=== PATIENT | female | born 2000 | race Caucasian/White ===

== ENCOUNTER 2019-05-06 12:33 | Emergency (ER) | payer BC, MEDICAID, SELFPAY ==
[2019-05-06 12:34] VITALS: BP 110/75; PULSE 88; RESP 15; TEMP 36.7; O2SAT 98; BMI 18.8
--- NOTE | 2019-05-06 13:44 | ED.DCSUM_ITS ---
History of Present Illness Chief Complaint: Back Informant: Patient Onset: Today Narrative: Patient presents to the ED with right-sided thoracic back pain/rib pain that started this morning. She twisted in her bed to reach over to the nightstand when she felt a sharp stabbing pain in this region. She states this was at her boyfriend's house and they did not have any analgesics so she did not take anything. She states it is painful when she takes of breath. She denies any chest pain or difficulty breathing. Pain is worse with movement also. She has never had this before. She is otherwise healthy. Past Medical History - Allergies and Home Meds Allergies/Adverse Reactions: Allergies No Known Allergies Allergy (Verified 05/06/19 12:37) Primary Care Physician: Aleksey Hurley DO [Primary Care Provider] - Surgical History: no surgical history Smoking Status: Never smoker Review of Systems General: Denies: Chills, Fever, Sweats Eyes: Denies: Visual changes - bilaterally, Diplopia ENT: Denies: Rhinorrhea, Sore throat Cardiovascular: Denies: Chest pain, Palpitations Respiratory: Denies: Dyspnea, Cough, Dyspnea on exertion Gastrointestinal: Denies: Abdominal pain, Nausea, Vomiting, Diarrhea, Melena, Hematochezia Genitourinary: Denies: Dysuria, Hematuria, Frequency Musculoskeletal: Reports: Back pain. Denies: Extremity Pain Skin: Denies: Rash, Wounds Neurological: Denies: Headache, Weakness, Numbness Physical Exam Vital Signs/Narrative: Vital Signs Temp Pulse Resp BP Pulse Ox 05/06/19 12:34 98.0 F 88 15 110/75 98 General: Well nourished, Well developed, No Acute Distress Head: Normocephalic, Atraumatic Eyes: Perrl, EOMI ENT: Moist mucous membranes, No rhinorrhea Neck: Supple, Nontender Cardiovascular: Regular rate, Regular rhythm, No murmurs Respiratory: No distress, CTA bilaterally, Chest nontender Abdomen: Soft, Nontender, Nondistended, Normal bowel sounds Back: Normal Inspection, - - Tenderness to palpation over right thoracic p araspinal muscles. There is no midline tenderness. No palpable step-offs. Patient also has some tenderness to palpation over the right posterior intercostal muscles. No skin changes. No rash. No concerning signs/symptoms of epidural abscess or cauda equina. Extremities: Nontender, No edema Skin: Normal color, No rash Neurological: Alert, Oriented x3, Cranial nerves II-XII grossly intact, Normal Strength, Normal Sensation Psychological: Normal affect, Normal Mood Diagnostic/Tx/Re-eval - Medical Decision Making Patient presents to the ED after twisting and injuring her right side of her thoracic region. Following history and physical exam, patient's pain is very reproducible. It is exacerbated with movement. Given the mechanism of her injury, I discussed with the patient and her mother that I feel it is very unlikely that there is any bony injury. This is most likely muscular in nature. Patient was given IM Toradol. She did report mild relief of her symptoms. A Lidoderm patch was placed to the area of pain. At this time, think it is safe for the patient be discharged home. I did provide her with a prescription for Naprosyn. She was educated on signs/symptoms to return to the ED. She is provided discharge instructions. She is agreeable to plan. Disposition: Home stable Impression: Thoracic strain ED Disposition - Plan for ED Patient: Disposition: Home or Assisted Living Diagnosis: Thoracic myofascial strain Instructions: Thoracic Strain Prescriptions: Naproxen [Naprosyn] 500 mg PO BID PRN PRN #30 tab PRN Reason: Pain Prescription Printed Referrals: Aleksey Hurley DO [Primary Care Provider] -
[2019-05-06] MEDS: Ketorolac 15 MG/ML Vial IM (13:47)
[2019-05-06] MEDS: Lidocaine 5% Patch 1 PATCH TOPICAL (14:26)
[2019-05-06 14:59] VITALS: BP 107/76; PULSE 84; RESP 16
== END 2019-05-06 15:01 | disposition home or self-care (01) ==
PROVIDERS: Emergency Provider Physician Assistant; Family Provider Pediatrics; PCP Pediatrics
DX: S29.012A Strain of muscle and tendon of back wall of thorax, initial encounter (principal); X50.1XXA Overexertion from prolonged static or awkward postures, initial encounter; Y93.9 Activity, unspecified; Y92.9 Unspecified place or not applicable
CPT/HCPCS: 96372; 99282

== ENCOUNTER 2019-12-18 17:32 | Emergency (ER) | payer BC, MEDICAID, SELFPAY ==
[2019-12-18 17:34] VITALS: BP 127/81; PULSE 134; RESP 18; TEMP 37.4; O2SAT 98; BMI 20.7
[2019-12-18 17:40] VITALS: PULSE 126; RESP 16; TEMP 37.4; O2SAT 98
--- NOTE | 2019-12-18 18:55 | ED.DCSUM_ITS ---
- ER Visit Summary Date of Service: 12/18/19 Chief Complaint: [Fever, chills, body aches, and sore throat] History of Present Illness: The patient is a 19 F [presents to the emergency department with symptoms that started this morning. Patient states that she had a roommate at school that had a cold recently. Patient also has a sister at home is on the tail end of similar kind of illness. Patient does describe a headache. He has had no significant cough. He denies any urinary symptoms. Patient last took Tylenol about 3 hours ago.] Physical Examination: [HEENT-PERRLA, EOMI. Cranial nerves II through XII grossly intact. TMs clear. Mucous membranes moist. No adenopathy. No nuchal rigidity. Pharynx slightly erythematous. No exudates. Uvula midline without trismus. Cardiovascular-regular rate and rhythm without murmur or ectopy Lungs-clear to auscultation, chest wall stable without crepitus or subcu emphysema Abdomen-normoactive bowel sounds, soft, nontender, no rebound or rigidity, no peritoneal signs. Extremities-intact ?4, normal range of motion, normal pulses, atraumatic] Test Results: [Influenza screen was negative. Strep screen was negative.] Emergency Department Course and Treatment: [Patient received Toradol 60 mg IM. I discussed possibly treating with Tamiflu as I suspect patient may have early onset of influenza however at this point she and her mother agree that they want to hold off on that treatment.] Treatment Plan: [Advised to push fluids and I will write her a prescription for naproxen for the body aches. Patient advised to follow-up with her primary care physician within 3 to 5 days. Advised to return if conditions worsen anyway.] Disposition: [Discharged home in stable condition] Impression: [Viral URI] This note was generated with [employer] dictation software. It may contain incorrect words, spelling, and punctuation that were not noted in review of the chart prior to signing ED Disposition - Plan for ED Patient: Referrals: Aleksey Hurley DO [Primary Care Provider] -
--- NOTE | 2019-12-18 18:57 | ED.DEP ---
ED Disposition - Plan for ED Patient: Instructions: URI, Viral, No Abx (Adult) Prescriptions: Naproxen [Naprosyn] 500 mg PO BID PRN #20 tab Prescription Printed Referrals: Aleksey Hurley DO [Primary Care Provider] - 3-5 Days
[2019-12-18] MEDS: Ketorolac 60 MG/2 ML Vial IM (19:11)
[2019-12-18 19:37] VITALS: BP 122/68; PULSE 99; RESP 17; O2SAT 97
--- NOTE | 2019-12-18 19:37 | ED.RN ---
SHOT TIME OBSERVED FOR GREATER THAN 15 MIN, NO REACTION NOTED BY THIS RN. PT D/C.
--- NOTE | 2019-12-19 13:51 | ED.RN ---
pt advised of pos culture result. pt spoke to dr cervantes and called in PVK 500mg 4 times a day x 7 days
== END 2019-12-18 19:38 | disposition home or self-care (01) ==
LOC: ED 18:05
PROVIDERS: Emergency Provider Emergency Medicine; PCP Pediatrics
DX: J06.9 Acute upper respiratory infection, unspecified (principal)
CPT/HCPCS: 87077; 87804; 87880; 96372; 99282; J7030; A4216

== ENCOUNTER → 2020-11-21 | Outpatient (CLI) | payer BC, MEDICAID, SELFPAY | END | disposition home or self-care (01) | LOC: LABSPEC 13:08 | PROVIDERS: PCP Pediatrics; Referring Provider Dermatology; Visit Provider Dermatology | DX: R50.9 Fever, unspecified (principal); L04.2 Acute lymphadenitis of upper limb; L30.8 Other specified dermatitis; L91.0 Hypertrophic scar | CPT/HCPCS: 87015; 87070; 87075; 87101; 87116; 87176; 87205; 87206 ==

== ENCOUNTER → 2020-12-06 09:45 | Outpatient (CLI) | payer BC, MEDICAID, SELFPAY ==
[2020-12-06 11:13] LABS: SARS-COV-2 TOTAL ABS Reactive (Nonreactive)
== END ==
PROVIDERS: PCP Pediatrics; Visit Provider Internal Medicine Pulmonary Disease
DX: R91.8 Other nonspecific abnormal finding of lung field (principal); J45.909 Unspecified asthma, uncomplicated
CPT/HCPCS: 36415; 86769

== ENCOUNTER → 2020-12-31 11:55 | Outpatient (CLI) | payer BC, MEDICAID, SELFPAY ==
[2020-12-31 15:19] LABS: Absolute Lymphocyte Count 1.73 X10^3/uL (0.83-4.51); Absolute Neutrophil Count 4.1 X10^3/uL (2.0-7.7); Basophil# 0.03 X10^3/uL; Basophil% 0.5 % (0-1); Eosinophil# 0.03 X10^3/uL; Eosinophils% 0.5 % (0-5); Hematocrit 40.5 % (37-47); Hemoglobin 13.4 g/dL (12.0-15.0); Lymphocyte # 1.73 X10^3/ul (4.0); Lymphocyte % 26.6 % (19-41); Mean Corp Hgb Conc 33.1 g/dL (32-36); Mean Corpuscular Hgb 29.3 pg (27.0-32.0); Mean Corpuscular Volume 88.4 fL (81-99); Mean Platelet Vol. 9.9 fl (6.2-12.0); Monocyte# 0.57 X10^3/uL; Monocyte% 8.8 % (0-10); NRBC Flagged by Analyzer 0 % (0-5); Neutrophil # 4.14 X10^3/uL (2.7-7.7); Neutrophil % 63.4 % (47-70); Platelet Count 245 K/mm3 (150-450); RBC Distribution Width CV 11.4 % (11.6-14.6); RBC Distribution Width SD 36.4 fl (35.1-43.9); Red Blood Count 4.58 M/mm3 (4.2-5.4); White Blood Count 6.5 K/mm3 (4.4-11.0)
[2020-12-31 15:38] LABS: ALB/GLOB Ratio 1.2 RATIO (0.9-2.4); AST(SGOT) 20 U/L (15-37); Alanine Aminotransfer ALT/SGPT 22 U/L (13-56); Albumin, Serum 4.2 g/dL (3.2-5.0); Alkaline Phosphatase 76 U/L (45-117); Anion Gap 6 (5-15); BUN 5 mg/dL (7-18); Calcium,Total 9.5 mg/dL (8.5-10.1); Chloride 104 mmol/L (98-107); Creatinine, Serum 0.72 mg/dL (0.55-1.02); EST Glomerular Filtration Rate 108 mL/min (>60); Est Glom Filt Rate - Afr Amer 131 mL/min (>60); Globulin 3.6 g/dL (2.2-4.2); Glucose 84 mg/dL (74-106); Magnesium 1.6 mg/dL (1.6-2.6); Potassium 3.7 mmol/L (3.5-5.1); Protein, Total 7.8 g/dL (6.4-8.2); Sodium Level 139 mmol/L (136-145); T4 Free Direct 1.07 ng/dL (0.76-1.46); Thyroid Stim Hormone (TSH) 0.81 uIU/mL (0.358-3.74)
== END ==
PROVIDERS: PCP Family Medicine; Referring Provider Family Medicine; Visit Provider Family Medicine
DX: R00.0 Tachycardia, unspecified (principal)
CPT/HCPCS: 36415; 80053; 83735; 84439; 84443; 85025

== ENCOUNTER → 2021-01-16 08:45 | Outpatient (CLI) | payer BC, MEDICAID, SELFPAY ==
[2021-01-14 13:56] VITALS: BMI 20.1
== END ==
PROVIDERS: PCP Family Medicine; Visit Provider Family Medicine
DX: I51.7 Cardiomegaly (principal)
CPT/HCPCS: 93306

== ENCOUNTER → 2021-02-18 08:19 | Outpatient (CLI) | payer BC, MEDICAID, SELFPAY ==
[2021-01-14 13:56] VITALS: BMI 20.1
[2021-02-18 08:36] LABS: Absolute Lymphocyte Count 2.15 X10^3/uL (0.83-4.51); Basophil# 0.03 X10^3/uL; Basophil% 0.5 % (0-1); Eosinophil# 0.09 X10^3/uL; Eosinophils% 1.6 % (0-5); Hematocrit 42.2 % (37-47); Hemoglobin 14.2 g/dL (12.0-15.0); Lymphocyte # 2.15 X10^3/ul (0.83-4.51); Lymphocyte % 37.5 % (19-41); Mean Corp Hgb Conc 33.6 g/dL (32-36); Mean Platelet Vol. 9.2 fl (6.2-12.0); Monocyte# 0.48 X10^3/uL; Monocyte% 8.4 % (0-10); NRBC Flagged by Analyzer 0 % (0-5); Neutrophil # 2.97 X10^3/uL (2.7-7.7); Neutrophil % 51.8 % (47-70); Platelet Count 248 K/mm3 (150-450); RBC Distribution Width CV 11.3 % (11.6-14.6); RBC Distribution Width SD 36.8 fl (35.1-43.9); Red Blood Count 4.74 M/mm3 (4.2-5.4); White Blood Count 5.7 K/mm3 (4.4-11.0)
[2021-02-18 08:47] LABS: Internal QC Validated? YES +Cl - CLEAR BKGD; Pregnancy, Serum, hCG Quali. NEGATIVE Negative
[2021-02-18 08:52] LABS: AST(SGOT) 25 U/L (15-37); Alanine Aminotransfer ALT/SGPT 52 U/L (13-56); Albumin, Serum 4.1 g/dL (3.2-5.0); Alkaline Phosphatase 72 U/L (45-117); Anion Gap 4 (5-15); BUN 7 mg/dL (7-18); BUN/Creat Ratio 8.8 RATIO (10-20); Chloride 104 mmol/L (98-107); EST Glomerular Filtration Rate 95 mL/min (>60); Est Glom Filt Rate - Afr Amer 115 mL/min (>60); Globulin 4.1 g/dL (2.2-4.2); Glucose 93 mg/dL (74-106); Potassium 3.8 mmol/L (3.5-5.1); Protein, Total 8.2 g/dL (6.4-8.2); Sodium Level 134 mmol/L (136-145)
--- NOTE | 2021-02-19 18:44 | TILTTABLE_ITS ---
- Staff Staff: Carrie Ma, - - Luna Valdez - Summary Pre Test Resting HR: 88 - Alert and oriented: Warm and dry Pre Test Resting BP: 135/82 - Alert and oriented: Warm and dry Minimum Test HR: 109 - Alert and oriented: Warm and dry Maximum Test HR: 130 - Alert and oriented: Warm/clammy Minimum Test BP: 129/83 - Alert and oriented: Warm and dry Maximum Test BP: 164/87 - Alert and oriented: Warm/clammy Reason for Test Termination: Reached Maximum Test Time Physician Tilt Table Report - Patient's Physicians Primary Care Physician: Dominik Narayan Circle Cutting Saw Operator: Aleksandr Brooke Indications/Diagnosis: Sinus tachycardia Procedure Comments: The patient was brought to the tilt table laboratory and laid supine on the tilt table. The patient was alert and oriented and warm and dry. The baseline heart rate was 80 bpm with a baseline blood pressure 135/82 mmHg. The cardiac rhythm was sinus rhythm. The patient was placed in the 70 degree upright tilt table position for approximately 30 minutes. The patient remained alert and oriented. The minimal heart rate was 109 bpm with a minimal blood pressure of 129/83 mmHg and a maximal heart rate of 130 bpm with a maximal blood pressure of 164/87 mmHg. The cardiac rhythm remained sinus rhythm. The patient remained alert and oriented and did not lose consciousness. The patient had complaints of hands cool and lightheaded . The patient was returned to the supine position. The patient remained alert and oriented. The concluding heart rate was 96 bpm with a blood pressure 145/86 mmHg. The cardiac rhythm remained sinus rhythm. Summary: 70 degree upright tilt table study considered negative for reproducible vasovagal/neurocardiogenic mediated near syncope/syncope.
[2021-02-19 18:52] VITALS: BP 129/83; BP 135/82; BP 164/87
== END ==
PROVIDERS: PCP Family Medicine; Referring Provider Family Medicine; Visit Provider Family Medicine
DX: R00.0 Tachycardia, unspecified (principal)
CPT/HCPCS: 36415; 80053; 84703; 85025; 93660; J7040; A4216

== ENCOUNTER → 2021-04-11 10:02 | Outpatient (CLI) | payer BC, MEDICAID, SELFPAY ==
[2021-03-11 08:05] VITALS: BMI 20.1
[2021-04-11 12:22] LABS: Absolute Lymphocyte Count 1.55 X10^3/uL (0.83-4.51); Absolute Neutrophil Count 2.6 X10^3/uL (2.0-7.7); Basophil# 0.02 X10^3/uL; Basophil% 0.4 % (0-1); Eosinophil# 0.04 X10^3/uL; Eosinophils% 0.9 % (0-5); Hematocrit 42.9 % (37-47); Hemoglobin 14.2 g/dL (12.0-15.0); Lymphocyte # 1.55 X10^3/ul (0.83-4.51); Lymphocyte % 33.1 % (19-41); Mean Corp Hgb Conc 33.1 g/dL (32-36); Mean Corpuscular Hgb 29.7 pg (27.0-32.0); Mean Corpuscular Volume 89.7 fL (81-99); Mean Platelet Vol. 10.4 fl (6.2-12.0); Monocyte# 0.51 X10^3/uL; Monocyte% 10.9 % (0-10); NRBC Flagged by Analyzer 0 % (0-5); Neutrophil # 2.55 X10^3/uL (2.7-7.7); Neutrophil % 54.5 % (47-70); Platelet Count 256 K/mm3 (150-450); RBC Distribution Width CV 11.6 % (11.6-14.6); RBC Distribution Width SD 37.4 fl (35.1-43.9); Red Blood Count 4.78 M/mm3 (4.2-5.4); White Blood Count 4.7 K/mm3 (4.4-11.0)
[2021-04-11 12:43] LABS: Vitamin B12 465 pg/mL (211-911)
[2021-04-11 12:56] LABS: AST(SGOT) 24 U/L (15-37); Alanine Aminotransfer ALT/SGPT 36 U/L (13-56); Albumin, Serum 4.4 g/dL (3.2-5.0); Alkaline Phosphatase 77 U/L (45-117); Anion Gap 6 (5-15); BUN 11 mg/dL (7-18); BUN/Creat Ratio 13.9 RATIO (10-20); Calcium,Total 9.4 mg/dL (8.5-10.1); Chloride 104 mmol/L (98-107); Creatinine, Serum 0.79 mg/dL (0.55-1.02); EST Glomerular Filtration Rate 96 mL/min (>60); Est Glom Filt Rate - Afr Amer 117 mL/min (>60); Globulin 4.2 g/dL (2.2-4.2); Glucose 86 mg/dL (74-106); Potassium 3.8 mmol/L (3.5-5.1); Protein, Total 8.6 g/dL (6.4-8.2); Sodium Level 137 mmol/L (136-145); Thyroid Stim Hormone (TSH) 1.11 uIU/mL (0.358-3.74)
[2021-04-11 13:54] LABS: Internal QC Validated? YES +Cl - CLEAR BKGD; Monotest Negative (Negative)
[2021-04-12 10:05] LABS: CMV Antibody IgG < 0.60 U/mL (0.00-0.59)
== END ==
PROVIDERS: PCP Family Medicine; Referring Provider Family Medicine; Visit Provider Family Medicine
DX: R53.83 Other fatigue (principal); R00.0 Tachycardia, unspecified
CPT/HCPCS: 36415; 80053; 82306; 82607; 84439; 84443; 85025; 86308; 86644

== ENCOUNTER → 2021-04-16 10:15 | Outpatient (CLI) | payer BC, MEDICAID, SELFPAY ==
[2021-03-11 08:05] VITALS: BMI 20.1
[2021-04-25 16:09] LABS: Dopamine, UR 260 ug/L (Undefined); Epinephrine, 24Ur 8 ug/24 hr (0-20); Epinephrine, Ur 4 ug/L (Undefined); Metanephrine, Ur 103 ug/L (Undefined); Norepinephrine, 24Ur 34 ug/24 hr (0-135); Norepinephrine, Ur 18 ug/L (Undefined); Normetanephrines, 24Ur 205 ug/24 hr (95-449); Normetanephrines, Ur 108 ug/L (Undefined); VMA, 24UR 4.8 mg/24 hr (0.0-7.5)
[2021-04-26 08:23] LABS: Dopamine, 24Ur 494 ug/24 hr (0-510); Metanephrines, 24Ur 196 ug/24 hr (36-209); VMA, UR 2.5 mg/L (Undefined)
== END ==
LOC: MTLAB 10:17
PROVIDERS: PCP Family Medicine; Referring Provider Family Medicine; Visit Provider Family Medicine
DX: R00.0 Tachycardia, unspecified (principal)
CPT/HCPCS: 81050; 82384; 83835; 84585

== ENCOUNTER → 2021-04-28 08:00 | Outpatient (CLI) | payer BC, MEDICAID, SELFPAY ==
[2021-03-11 08:05] VITALS: BMI 20.1
--- NOTE | 2021-04-28 08:06 | MRI_ITS ---
STUDY: MRI BRAIN WITH AND WITHOUT CONTRAST REASON FOR EXAM: Female, 20 years old. [employer] TECHNIQUE: Standardized multiplanar fat and water weighted pulse sequences were obtained. 10ml Dotarem via IV was administered for the contrast portion of the examination. COMPARISON: None. FINDINGS: Normal size of the ventricles and extra-axial spaces for the patient''s age. Normal white matter tracts of the supratentorial brain. Normal bilateral basal ganglia. Normal thalami. There is no extra-axial fluid accumulation. Normal flow voids within the major intracranial circulation suggesting patency by spin echo criteria. Normal venous enhancement. There is no enhancing intra-axial or extra-axial abnormality. Incidental small enhancing focal DVA in the left cerebellar hemisphere. Normal sella turcica, pituitary gland, infundibular stalk, optic chiasm and hypothalamus. Normal tectal plate and pineal gland. Normal midbrain, manuel and medulla. Normal cerebellum. Normal basal cisterns. Normal bilateral temporal bones. Normal bilateral internal auditory canals. No demonstrated orbital abnormality, within the constraints of a routine brain study. Normal visualized paranasal sinuses. Normal calvarium and skull base. Normal visualized soft tissue structures. Normal visualized upper cervical spine. MRI/Brain W/WO Contrast IMPRESSION: 1. Normal unenhanced and enhanced MRI of the brain. 2. 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 Electronically Signed: Konrad Mendoza MD at 11:17 EDT , Service support ,
== END ==
PROVIDERS: PCP Family Medicine; Referring Provider Family Medicine; Visit Provider Family Medicine
DX: R51.9 Headache, unspecified (principal)
CPT/HCPCS: 70553; A9575

== ENCOUNTER → 2021-08-08 | Outpatient (CLI) | payer BC, MEDICAID, SELFPAY | END | disposition home or self-care (01) | LOC: LABSPEC 16:52 | PROVIDERS: PCP Family Medicine; Referring Provider Family Medicine; Visit Provider Family Medicine | DX: B34.9 Viral infection, unspecified (principal) | CPT/HCPCS: 87633; 87635; U0005; U0003 ==

== ENCOUNTER → 2021-09-23 14:01 | Outpatient (CLI) | payer BC, MEDICAID, SELFPAY ==
--- NOTE | 2021-09-23 14:04 | CT_ITS ---
STUDY: CT CHEST WITHOUT CONTRAST REASON FOR EXAM: Female, 20 years old. Substernal chest pain RADIATION DOSAGE (If Supplied By Facility): CTDIvol = ( 6.57 ) mGy, DLP = ( 234.85 ) mGycm TECHNIQUE: Transaxial imaging was performed without the administration of intravenous contrast material. Individualized dose optimization techniques were used for this CT. COMPARISON: None. FINDINGS: Lungs are unremarkable aside from a subtle area of opacification in the left upper lobe suggesting pneumonitis. No organized infiltrate or effusion. Normal heart and pericardium. Normal mediastinum. Normal hilar regions. Normal unenhanced pulmonary arteries. Normal aorta arch and descending thoracic aorta. Normal osseous structures. There is no demonstrated abnormality of the visualized upper abdomen. CT/Chest without Contrast IMPRESSION: Left lower lobe pneumonitis. Electronically Signed: Yannick Terry MD at 17:23 EST , Service support ,
== END ==
PROVIDERS: PCP Family Medicine; Referring Provider Internal Medicine Pulmonary Disease; Visit Provider Internal Medicine Pulmonary Disease
DX: R91.8 Other nonspecific abnormal finding of lung field (principal)
CPT/HCPCS: 71250

== ENCOUNTER → 2021-09-24 08:53 | Outpatient (CLI) | payer BC, MEDICAID, SELFPAY ==
--- NOTE | 2021-09-24 08:56 | US_ITS ---
STUDY: ULTRASOUND BREAST - RIGHT REASON FOR EXAM: Female, 20 years old. Axillary mass TECHNIQUE: Axial and longitudinal images of the RIGHT breast were performed with a high resolution ultrasound transducer. # OF IMAGES: 96 COMPARISON: None. FINDINGS: RIGHT Breast: Sonographic evaluation of the right breast shows normal dense fibroglandular tissue. No suspicious solid mass architecture distortion or clustered shadowing calcification. There is a subcentimeter physiologic axillary lymph node measuring 1 x 0.6 x 0.5 cm. IMPRESSION: No suspicious sonographic findings ASSESSMENT CATEGORY: BIRADS Category 2: Benign. A letter regarding these results will be sent to the patient by the facility within 30 days. Electronically Signed: Yannick Terry MD at 16:19 EST , Service support , STUDY: ULTRASOUND BREAST - LEFT REASON FOR EXAM: Female, 20 years old. TECHNIQUE: Axial and longitudinal images of the LEFT breast were performed with a high resolution ultrasound transducer. # OF IMAGES: 96 COMPARISON: None. FINDINGS: LEFT Breast: Sonographic evaluation of the left breast shows normal dense fibroglandular tissue. No suspicious shadowing solid lesion, architectural distortion, or clustered shadowing calcification. Incidental note is made of a physiologic subcentimeter left axillary lymph node. US/Breast Limited Unilateral IMPRESSION: No suspicious sonographic findings ASSESSMENT CATEGORY: BIRADS Category 2: Benign. A letter regarding these results will be sent to the patient by the facility within 30 days. Electronically Signed: Yannick Terry MD at 16:20 EST , Service support ,
== END ==
PROVIDERS: PCP Family Medicine; Visit Provider Family Medicine
DX: R22.33 Localized swelling, mass and lump, upper limb, bilateral (principal)
CPT/HCPCS: 76642

== ENCOUNTER 2021-11-05 18:02 | Outpatient (CLI) | payer BC, MEDICAID, SELFPAY | END 2021-11-05 23:59 | disposition short-term general hospital (02) | PROVIDERS: PCP Family Medicine; Referring Provider Nurse Practitioner Family; Visit Provider Nurse Practitioner Family | DX: Z11.52 Encounter for screening for COVID-19 (principal) | CPT/HCPCS: 87635; U0003; U0005 ==

== ENCOUNTER 2021-12-11 08:30 | Outpatient (CLI) | payer OTHER, MEDICAID, SELFPAY ==
[2021-12-11 09:56] LABS: Absolute Neutrophil Count 2.7 X10^3/uL (2.0-7.7); Basophil# 0.03 X10^3/uL; Basophil% 0.6 % (0-1); Eosinophil# 0.15 X10^3/uL; Eosinophils% 2.8 % (0-5); Hematocrit 42.4 % (37-47); Hemoglobin 14.9 g/dL (12.0-15.0); Lymphocyte % 37.4 % (19-41); Mean Corp Hgb Conc 35.1 g/dL (32-36); Mean Corpuscular Hgb 31.1 pg (27.0-32.0); Mean Corpuscular Volume 88.5 fL (81-99); Monocyte# 0.47 X10^3/uL; Monocyte% 8.8 % (0-10); NRBC Flagged by Analyzer 0 % (0-5); Neutrophil # 2.68 X10^3/uL (2.7-7.7); Platelet Count 284 K/mm3 (150-450); RBC Distribution Width CV 11.9 % (11.6-14.6); RBC Distribution Width SD 38.1 fl (35.1-43.9); Red Blood Count 4.79 M/mm3 (4.2-5.4); White Blood Count 5.4 K/mm3 (4.4-11.0)
[2021-12-11 10:10] LABS: Vitamin D,25 Hydroxy 48.4 ng/mL
[2021-12-11 10:18] LABS: Thyroid Stim Hormone (TSH) 1.13 uIU/mL (0.358-3.74)
[2021-12-12 14:31] LABS: MG Sendout 1.7 mg/dL (1.6-2.3)
== END 2021-12-11 23:59 | disposition home or self-care (01) ==
LOC: MFPLAB 08:33
PROVIDERS: PCP Family Medicine; Referring Provider Family Medicine; Visit Provider Family Medicine
DX: R00.0 Tachycardia, unspecified (principal); E55.9 Vitamin D deficiency, unspecified
CPT/HCPCS: 36415; 82306; 83735; 84443; 85025

== ENCOUNTER → 2022-08-05 | Outpatient (CLI) | payer OTHER, MEDICAID, SELFPAY ==
[2022-08-05 12:41] LABS: Absolute Lymphocyte Count 1.66 X10^3/uL (0.83-4.51); Absolute Neutrophil Count 2.9 X10^3/uL (2.0-7.7); Basophil# 0.04 X10^3/uL; Basophil% 0.8 % (0-1); Eosinophil# 0.09 X10^3/uL; Eosinophils% 1.8 % (0-5); Hematocrit 39.5 % (37-47); Hemoglobin 13.6 g/dL (12.0-15.0); Lymphocyte # 1.66 X10^3/ul (0.83-4.51); Lymphocyte % 32.9 % (19-41); Mean Corp Hgb Conc 34.4 g/dL (32-36); Mean Corpuscular Hgb 31.1 pg (27.0-32.0); Mean Corpuscular Volume 90.4 fL (81-99); Mean Platelet Vol. 10.2 fl (6.2-12.0); Monocyte# 0.38 X10^3/uL; Monocyte% 7.5 % (0-10); NRBC Flagged by Analyzer 0 % (0-5); Neutrophil # 2.87 X10^3/uL (2.7-7.7); Neutrophil % 56.8 % (47-70); Platelet Count 262 K/mm3 (150-450); RBC Distribution Width CV 11.8 % (11.6-14.6); RBC Distribution Width SD 38.5 fl (35.1-43.9); Red Blood Count 4.37 M/mm3 (4.2-5.4); White Blood Count 5.1 K/mm3 (4.4-11.0)
[2022-08-05 13:12] LABS: AST(SGOT) 19 U/L (15-37); Alanine Aminotransfer ALT/SGPT 24 U/L (13-56); Albumin, Serum 3.9 g/dL (3.2-5.0); Alkaline Phosphatase 61 U/L (45-117); Anion Gap 6 (5-15); BUN 8 mg/dL (7-18); BUN/Creat Ratio 10.9 RATIO (10-20); Calcium,Total 9.1 mg/dL (8.5-10.1); Chloride 107 mmol/L (98-107); Creatinine, Serum 0.73 mg/dL (0.55-1.02); EST Glomerular Filtration Rate 104 mL/min (>60); Est Glom Filt Rate - Afr Amer 126 mL/min (>60); Globulin 3.9 g/dL (2.2-4.2); Glucose 80 mg/dL (74-106); Magnesium 1.9 mg/dL (1.6-2.6); Protein, Total 7.8 g/dL (6.4-8.2); Sodium Level 138 mmol/L (136-145); Thyroid Stim Hormone (TSH) 1.23 uIU/mL (0.358-3.74)
== END | disposition home or self-care (01) ==
LOC: MFPLAB 09:48
PROVIDERS: PCP Family Medicine; Referring Provider Family Medicine; Visit Provider Family Medicine
DX: R00.0 Tachycardia, unspecified (principal); E55.9 Vitamin D deficiency, unspecified
CPT/HCPCS: 36415; 80053; 82306; 83735; 84443; 85025

== ENCOUNTER → 2022-12-23 | Outpatient (CLI) | payer OTHER, MEDICAID, SELFPAY ==
--- NOTE | 2022-12-23 08:25 | CT_ITS ---
STUDY: CT CHEST WITHOUT CONTRAST REASON FOR EXAM: Female, 22 years old. ABN LUNG FINDING RADIATION DOSAGE (If Supplied By Facility): CTDIvol = ( 5.93 ) mGy, DLP = ( 210.75 ) mGycm TECHNIQUE: Transaxial imaging was performed without the administration of intravenous contrast material. Multiplanar coronal and sagittal images were reformatted. Individualized dose optimization techniques were used for this CT. COMPARISON: Comparison is made with prior study dated 09/23/2021. FINDINGS: CHEST The lungs are normal. There is no demonstrated pleural abnormality. Normal heart and pericardium. Normal mediastinum. Normal hilar regions. Normal unenhanced pulmonary arteries. Normal aorta arch and descending thoracic aorta. Normal osseous structures. There is no demonstrated abnormality of the visualized upper abdomen. CT/Chest without Contrast IMPRESSION: Normal unenhanced CT chest T abdomen examination. Electronically Signed: Tyler Zabala MD at 9:12 EST ,
== END | disposition home or self-care (01) ==
LOC: CT 08:23
PROVIDERS: PCP Family Medicine; Referring Provider Internal Medicine Pulmonary Disease; Visit Provider Internal Medicine Pulmonary Disease
DX: R91.8 Other nonspecific abnormal finding of lung field (principal)
CPT/HCPCS: 71250